=== PATIENT | male | born 1965 | race Caucasian/White ===

== ENCOUNTER 2024-03-13 06:12 | Day surgery (SDC) | payer OTHER, SELFPAY ==
[2024-03-13 06:10] VITALS: BMI 24.3
[2024-03-13 06:15] VITALS: BP 117/56
[2024-03-13 06:26] VITALS: BMI 24.3
[2024-03-13] MEDS: TYLENOL 1000 MG PO (06:27)
[2024-03-13] MEDS: NORMOSOL-R 1000 IV (06:27)
[2024-03-13 08:24] VITALS: BP 96/64
[2024-03-13 08:30] VITALS: BP 97/65
--- NOTE | 2024-03-13 08:41 | W.SUR.PREOP ---
Pre-Operative Surgical Note
-
I have examined this patient prior to the performance of the scheduled procedure.
The patient's condition is unchanged from the time of the current History and
Physical and the patient is able to undergo the scheduled procedure.
--- NOTE | 2024-03-13 08:41 | W.IMMPOSTOP ---
Surgical Immed Post Op Note
-
Primary Surgeon: Manuelito Amaro MD
Assisting Surgeon: None
Pre-op Diagnosis: Umbilical hernia
Post-op Diagnosis: Same
Procedure Performed: Open umbilical hernia repair with mesh (onlay)
Anesthesia Type: General
Specimen / Cultures: None
Estimated Blood Loss: 1 cc
Complications: None
Operative Findings: 1 cm umbilical hernia containing preperitoneal fat. A 3 x 3 cm piece of Bard soft mesh was placed in an onlay position and secured with a 0 PDS suture.
[2024-03-13 08:45] VITALS: BP 110/62
--- NOTE | 2024-03-13 08:46 | OR.RPT ---
Operative Report
Operative Report
Patient Name: Ayden Guevara
: 1965
Date of Operation: 03/13/2024
Preoperative Diagnosis: Umbilical hernia
Postoperative Diagnosis: Same
Procedure(s):
Open umbilical hernia
Surgeon(s):
Dr. Amaro
Veterinary Epidemiologist(s):
None
Anesthesia: General
Estimated Blood Loss: 1 cc
Urine Output: None
Drains/Lines/Implants: 3 x 3 cm uncoated polypropylene Bard soft mesh
Specimens: None
Indication for surgery:
The patient has a symptomatic umbilical hernia. After review of their therapeutic options, they elected to pursue open repair.
Operative Findings: 1 cm umbilical hernia containing preperitoneal fat. A 3 x 3 cm piece of Bard soft mesh was placed in an onlay position and secured with a 0 PDS suture.
Details of the operation:
After successful induction of anesthesia, the patient was prepped and draped in the supine position. A team timeout was performed confirming administration of DVT prophylaxis, IV antibiotics and SCDs. The skin was anesthestized with 0.25% Marcaine
and an infraumbilical incision was made and dissection carried down to the fascia. The hernia sac was then encircled and carefully dissected off of the umbilical stalk and returned to the abdomen. The defect measured 1 cm. The subcutaneous fat was
then dissected off of the anterior rectus sheath to create a pocket large enough to accommodate the mesh to ensure the mesh laid completely flat. Interrupted 0 PDS sutures were then laid out in a transverse orientation and a 3 x 3 centimeter round
Bard soft mesh was backloaded over the tails and then tied down closing the defect and securing the mesh. The umbilical stalk was then tacked down to the fascia with a 3-0 Vicryl suture. The dermis was then approximated with interrupted 3-0 Vicryl
sutures followed by Dermabond. Once the glue had dried, we placed a folded up piece of gauze into the umbilicus and covered it with a large Tegaderm dressing and then suctioned out the gauze to create a vacuum dressing to help obliterate the
space. The patient returned to the Recovery Room in stable condition. Sponge and instrument counts were correct. No specimens sent to Pathology.
I was the attending physician and performed the procedure with no assistance. I was present for all portions of the case
Manuelito Amaro MD
[2024-03-13 09:00] VITALS: BP 116/72
[2024-03-13 09:15] VITALS: BP 103/73
[2024-03-13] MEDS: ROXICODONE 5 MG PO (09:25)
== END 2024-03-13 09:35 | disposition home or self-care (01) ==
LOC: SDS 06:12
PROVIDERS: ATTENDING PHYSICIAN Surgery
DX: K42.9 Umbilical hernia without obstruction or gangrene (principal)
CPT/HCPCS: 49593